=== PATIENT | female | born 1965 | race Caucasian/White ===

== ENCOUNTER 2017-01-27 09:05 | Emergency (ER) | payer OTHER ==
[2017-01-27 09:28] VITALS: BP 146/90
--- NOTE | 2017-01-27 09:39 | Emergency Department Report ---
Chief Complaint: Chest Pain Stated Complaint: HEART PALPITATION Time Seen by Provider: 01/27/17 09:39 - HPI History of Present Illness: Patient here reports that she was driving and it felt like her heart keeps stopping and starting. She says she was also having some chest pain to the right side of her chest. She says she has a history of atrial fibrillation and high blood pressure and her primary care doctor is and equal landed and requested to be referred to a senior gamemaster. Patient says she had A. fib when she had her shoulder injury and they gave her blood thinner injection but she does not take any medication at present. Her EKGs currently sinus rhythm. Denies any shortness of breath or coughing. Denies any fever or chills. She said she had chest pain but she does not have any at present. - ROS Review of Systems: All systems are negative as stated in HPI above - Exam Vital Signs: Vital Signs 01/27/17 09:25 Temperature 97.3 F L Pulse Rate 100 H Respiratory 20 Rate Blood Pressure 146/90 O2 Sat by Pulse 100 Oximetry Physical Exam: Gen.: This is a 51-year-old female well-nourished well-developed in no acute distress CV: S1, S2 regular rate and rhythm normal . Lungs: Clear to auscultate bilaterally, no rhonchi wheezes or rales MSE screening note: Focused history and physical exam performed. Due to findings the following was ordered: ED Medical Decision Making - Medical Decision Making MDM: Patient screened by provider in triage area. Appropriate protocol initiated and patient to be seen in main ED by ED Disposition for MSE Condition: Stable
[2017-01-27 10:15] LABS: Anion Gap 17 mmol/L; BUN/Creatinine Ratio 14; Blood Urea Nitrogen 7 mg/dL (7-17); Calcium 8.8 mg/dL (8.4-10.2); Carbon Dioxide 27 mmol/L (22-30); Chloride 102.7 mmol/L (98-107); Glucose 94 mg/dL (65-100); Potassium 3.6 mmol/L (3.6-5.0); Sodium 143 mmol/L (137-145)
[2017-01-27 10:27] LABS: Basophils % (Auto) 0.5 % (0.0-1.8); Eosinophils % (Auto) 3.3 % (0.0-4.3); Hematocrit 41.5 % (30.3-42.9); Hemoglobin 13.3 gm/dl (10.1-14.3); Mean Corpuscular HGB Conc 32 % (30-34); Mean Corpuscular Hemoglobin 29 pg (28-32); Mean Corpuscular Volume 90 fl (79-97); Platelet Count 196 K/mm3 (140-440); Red Blood Count 4.61 M/mm3 (3.65-5.03); Red Cell Distribution Width 14.2 % (13.2-15.2); White Blood Count 2.8 K/mm3 (4.5-11.0)
== END 2017-01-27 10:17 | disposition left against medical advice (07) ==
LOC: ED 09:05
DX: R00.2 Palpitations (principal); Z53.21 Procedure and treatment not carried out due to patient leaving prior to being seen by health care provider
CPT/HCPCS: 36415; 80048; 84484; 85025; 93005; 93010